=== PATIENT | female | born 1990 | race Caucasian/White ===

== ENCOUNTER 2017-12-07 19:47 | Emergency (ER) | payer OTHER ==
[~2017-12-07] VITALS: Ht 172.7 cm; Wt 56.7 kg
[2017-12-07] MEDS ORDERED: Percocet 5-3251 EACH PO (20:22)
[2017-12-07] MEDS ORDERED: CYCL10 PO (20:22)
[2017-12-07 21:46] LABS: Adenovirus Not Detected (NOT DETECT); Bordetella pertussis Not Detected (NOT DETECT); Chlamydophila pneumoniae Not Detected (NOT DETECT); Coronavirus 229E Not Detected (NOT DETECT); Coronavirus HKU1 Not Detected (NOT DETECT); Coronavirus NL63 Not Detected (NOT DETECT); Coronavirus OC43 Not Detected (NOT DETECT); Human Metapneumovirus Not Detected (NOT DETECT); Human Rhinovirus/Enterovirus Not Detected (NOT DETECT); Influenza A/2009-H1 Not Detected (NOT DETECT); Influenza A/H1 Not Detected (NOT DETECT); Influenza A/H3 Not Detected (NOT DETECT); Influenza B Not Detected (NOT DETECT); Mycoplasma pneumoniae Not Detected (NOT DETECT); Parainfluenza Virus 1 Not Detected (NOT DETECT); Parainfluenza Virus 2 Not Detected (NOT DETECT); Parainfluenza Virus 3 Not Detected (NOT DETECT); Parainfluenza Virus 4 Not Detected (NOT DETECT); Respiratory Syncytial Virus Not Detected (NOT DETECT)
[2017-12-07 23:02] LABS: Influenza A Not Detected (NOT DETECT)
== END 2017-12-07 20:36 | disposition home or self-care (01) ==
LOC: ER 19:47
PROVIDERS: Psychiatry & Neurology Psychiatry
DX: M54.5 Low back pain (principal)
CPT/HCPCS: 87486; 87581; 87633; 87798; 96372; 99283; J1885

== ENCOUNTER 2020-06-16 04:58 | Inpatient (IN) | payer OTHER ==
[~2020-06-16] VITALS: Ht 172.7 cm; Wt 68.0 kg
[~2020-06-16 04:58] MED LIST: CYCL10 PO; Percocet 5-3251 EACH PO
[2020-06-16] MEDS ORDERED: PRENATAL MULTI1 EAC5 PO (05:32)
[2020-06-16 05:40] LABS: BASOPHILS ABSOLUTE AUTO 0.04 K/mm3 (0.00-0.23); BASOPHILS PERCENT AUTO 0 % (0-2); EOSINOPHILS ABSOLUTE AUTO 0.03 K/mm3 (0.00-0.68); EOSINOPHILS PERCENT AUTO 0 % (0-6); Hematocrit 39.2 % (33.0-51.0); IMMATURE GRAN PERCENT AUTO 1 % (0-1); LYMPHOCYTES ABSOLUTE AUTO 1.25 K/mm3 (0.84-5.20); LYMPHOCYTES PERCENT AUTO 7 % (21-46); MONOCYTES ABSOLUTE AUTO 0.86 K/mm3 (0.16-1.47); MONOCYTES PERCENT AUTO 5 % (4-13); Mean Corpuscular HGB 31.7 pg (26.0-34.0); Mean Corpuscular HGB Conc 33.2 g/dL (31.5-36.5); Mean Corpuscular Volume 96 fL (80-100); NEUTROPHILS ABSOLUTE AUTO 15.49 K/mm3 (1.96-9.15); NEUTROPHILS PERCENT AUTO 87 % (41-73); Platelet Count 180 K/mm3 (150-400); RDW Coefficient Variation 13.2 % (11.7-14.2); RDW Standard Deviation 46.1 fL (35.1-46.3); White Blood Cell Count 17.77 K/mm3 (4.00-11.30)
[2020-06-16] MEDS ORDERED: IBUP800 PO (15:41)
--- NOTE | 2020-06-16 16:53 | NUR ---
RN ROUNDED TO HELP W/ . NB AT BREAST W/ MOUTH FULL OF BREAST TISSUE AND WOULD NOT SUCK, DURING ORAL ASSESSMENT AND SLIGHT PRESSURE ON ROOF OF MOUTH NB SUCKED WELL. PT DOES NOT WANT TO USE SHIELD AT THIS TIME. RN INSTRUCT/DEMO WIDENING LATCH, CORRECT POSITIONING AND NIPPLE SHAPE AFTER FEEDS. INSTRUCTED PT TO HAND EXPRESS DROPS INTO NB MOUTH IF NB IS NOT GETTING A GOOD FEED. PT'S NIPPLE VERY SENSITIVE WITH LATCHING AND HAND EXPRESSION. INSTRUCTED PT TO ATTEMPT TO LATCH NB EVERY 2-3 HOURS, IF NB DOES NOT LATCH TO HAND EXPRESS 10-20 DROPS INTO NB MOUTH. PT VERBALIZED UNDERSTANDING, DENIES ANY FURTHER QUESTIONS OR CONCERNS. WILL ROUND AGAIN IN THE MORNING.
[2020-06-17 06:23] LABS: BASOPHILS ABSOLUTE AUTO 0.06 K/mm3 (0.00-0.23); BASOPHILS PERCENT AUTO 0 % (0-2); EOSINOPHILS ABSOLUTE AUTO 0.06 K/mm3 (0.00-0.68); EOSINOPHILS PERCENT AUTO 0 % (0-6); Hematocrit 35.7 % (33.0-51.0); IMMATURE GRAN ABSOLUTE AUTO 0.08 K/mm3 (0.00-0.10); IMMATURE GRAN PERCENT AUTO 0 % (0-1); LYMPHOCYTES ABSOLUTE AUTO 1.61 K/mm3 (0.84-5.20); LYMPHOCYTES PERCENT AUTO 8 % (21-46); MONOCYTES ABSOLUTE AUTO 1.14 K/mm3 (0.16-1.47); MONOCYTES PERCENT AUTO 6 % (4-13); Mean Corpuscular HGB 32.1 pg (26.0-34.0); Mean Corpuscular HGB Conc 33.6 g/dL (31.5-36.5); Mean Corpuscular Volume 96 fL (80-100); Mean Platelet Volume 10.7 fL (9.1-12.4); NEUTROPHILS PERCENT AUTO 85 % (41-73); Platelet Count 162 K/mm3 (150-400); RDW Coefficient Variation 13.3 % (11.7-14.2); RDW Standard Deviation 46.7 fL (35.1-46.3); Red Blood Cell Count 3.74 M/mm3 (3.80-5.20); White Blood Cell Count 19.35 K/mm3 (4.00-11.30)
--- NOTE | 2020-06-17 14:22 | NUR ---
DISCHARGE DC HOME STABLE. PARENTS VERBALIZE UNDERSTANDING OF DC INSTRUCTIONS AND FOLLOW UP APPOINTMENTS. NO QUESTIONS OR CONCERNS. CARING FOR SELF AND INDEPENDANTLY.
== END 2020-06-17 14:30 | disposition home or self-care (01) | DRG 807 ==
LOC: BC 04:58 → OBS 04:58 → BC 05:22
PROVIDERS: ADMIT Registered Nurse Community Health
PROC: 10E0XZZ Delivery of Products of Conception, External Approach (ICD-10-PCS; principal; 2020-06-16)
DX: O70.0 First degree perineal laceration during delivery (principal); Z37.0 Single live birth; Z3A.40 40 weeks gestation of pregnancy
CPT/HCPCS: 36415; 76856; 85025; 86850; 86900; 86901; 88307; J2405; J2590; J7120

== ENCOUNTER → 2020-08-06 | Outpatient (CLI) | payer OTHER ==
[~2020-08-06] MED LIST changes: +IBUP800 PO; +PRENATAL MULTI1 EAC5 PO
== END ==
LOC: LAB SHORT 16:35 → LAB UCHC 16:35
DX: N76.0 Acute vaginitis (principal)
CPT/HCPCS: 87070; 87205

== ENCOUNTER 2025-10-07 07:27 | Inpatient (IN) | payer SELFPAY ==
[~2025-10-07] VITALS: Ht 172.7 cm; Wt 64.8 kg
[2025-10-07] MEDS ORDERED: Vancomycin (Pharmacy Consult) IV PRN (08:10)
[2025-10-07] MEDS ORDERED: Clindamycin 900mg in D5W 50ML 50 ML IV ONE (08:10)
[2025-10-07] MEDS ORDERED: Piperacillin/Tazobactam Sod 4.5 GM in NS 100 ML IV ONE (08:10)
[2025-10-07] MEDS ORDERED: NS 1,000 ML IV SCH ×2 (08:10→11:25)
[2025-10-07 08:35] LABS: BASOPHILS ABSOLUTE AUTO 0.04 K/mm3 (0.00-0.23); BASOPHILS PERCENT AUTO 0 % (0-2); EOSINOPHILS ABSOLUTE AUTO 0.03 K/mm3 (0.00-0.68); EOSINOPHILS PERCENT AUTO 0 % (0-6); Hematocrit 45.1 % (33.0-51.0); Hemoglobin 15.6 g/dL (11.5-16.0); IMMATURE GRAN ABSOLUTE AUTO 0.13 K/mm3 (0.00-0.10); IMMATURE GRAN PERCENT AUTO 1 % (0-1); LYMPHOCYTES ABSOLUTE AUTO 0.22 K/mm3 (0.84-5.20); LYMPHOCYTES PERCENT AUTO 1 % (21-46); MONOCYTES ABSOLUTE AUTO 0.77 K/mm3 (0.16-1.47); MONOCYTES PERCENT AUTO 5 % (4-13); Mean Corpuscular HGB Conc 34.6 g/dL (31.5-36.5); Mean Corpuscular Volume 90 fL (80-100); NEUTROPHILS ABSOLUTE AUTO 16.01 K/mm3 (1.96-9.15); NEUTROPHILS PERCENT AUTO 93 % (41-73); NRBC ABSOLUTE 0.00 K/mm3 (0.00-0.02); NRBC Auto 0.0 /100 WBC (0.0-0.2); Platelet Count 178 K/mm3 (150-400); RDW Coefficient Variation 12.2 % (11.7-14.2); RDW Standard Deviation 39.8 fL (35.1-46.3)
[2025-10-07] MEDS ORDERED: Ketorolac Tromethamine 30mg Vial IV ONE (08:45)
[2025-10-07 09:03] LABS: C-REACTIVE PROTEIN, EXT RANGE 1.17 mg/dL (0.000-0.300); Magnesium, Blood 2.1 mg/dL (1.6-2.4)
[2025-10-07 09:06] LABS: Alanine Aminotransfer (ALT/SGP 21.0 U/L (12-78); Albumin, Blood 5.1 g/dL (3.4-5.0); Albumin/Globulin Ratio 1.6 (0.8-1.8); Anion Gap 12.0 mmol/L (3-11); Aspartate Aminotrans (AST/SGOT 14.0 U/L (12-37); Bilirubin, Total 1.5 mg/dL (0.1-1.0); Blood Urea Nitrogen 13.0 mg/dL (8-24); CO2, Blood 20.0 mmol/L (21-32); Calcium, Blood 9.5 mg/dL (8.5-10.1); Chloride, Blood 103.0 mmol/L (98-108); Creatinine, Blood 0.82 mg/dL (0.40-1.00); Globulin, Blood 3.1 g/dL (2.2-4.0); Glucose, Blood 136.0 mg/dL (70-99); Potassium, Blood 3.4 mmol/L (3.5-5.5); Sodium, Blood 132.0 mmol/L (136-145); Total Protein, Blood 8.2 g/dL (6.4-8.2)
[2025-10-07] MEDS ORDERED: FLU VACC TS2025-26(6MOS UP)/PF 45 MCG/0.5 ML SYRINGE IM SCH (12:25)
[2025-10-07] MEDS ORDERED: Ondansetron HCl 2 MG / ML 2ML Vial IV PRN (12:25)
[2025-10-07] MEDS ORDERED: Vancomycin (Pharmacy Consult) IV SCH (12:25)
[2025-10-07] MEDS ORDERED: Ketorolac Tromethamine 15mg Vial IV PRN (12:30)
[2025-10-07 13:41] VITALS: BP 98/63
[2025-10-07] MEDS ORDERED: NS 250 ML IV PRN (13:45)
[2025-10-07] MEDS ORDERED: Piperacillin/Tazobactam Sod 4.5 GM in NS 100 ML IV SCH (14:00)
[2025-10-07 15:30] VITALS: BP 103/65
--- NOTE | 2025-10-07 15:37 | NUR ---
NOTE PT HAS VIEWS SCORE OF 3 DUE TO HR, TEMP, AND BP. VITALS RETAKEN, TEMP IS 98.6 ORAL. PT BP IMPROVING, HR STILL TACHY, PT ON TELE, PT RR INCREASED FROM 14 TO 16. PT REPORTS "IMPROVING." PT JUST COMPLETED IV ANTIBIOTIC AND ELECTRONIC ENGINEERING TECHNICIAN NOTIFIED. PT IN BED, CALLS APPROPRAITE. LOCKED, CALL LIGHT IN REACH.
[2025-10-07 17:25] VITALS: BP 87/56
--- NOTE | 2025-10-07 17:29 | NUR ---
NOTE PT VEWS SCORE WAS 4. PT BP IS 87/56. PT HR 116. PT RR IS 16. SPO2 100%. PT ORAL TEMP IS 99.2. THIS RN NOTIFIED PROCESSING TECH, THIS RN ATTEMPTED TO CALL DR. SNELL, AWAITING CALL BACK. PT HAS LR RUNNING AT 100ML/HR.
[2025-10-07 17:36] VITALS: BP 95/58
[2025-10-07 19:24] VITALS: BP 93/59
--- NOTE | 2025-10-07 19:56 | NUR ---
SHIFT SUMMARY THIS RN GOT AHOLD OF DR. SNELL, (PER PREVIOUS NOTE) THIS RN REPORTED PT VITALS. DR. SNELL GAVE ORDER FOR MIDODRINE 5MG TID, W PARAMETERS. THIS RN ADMINISTERED AT 1754 WHEN BP WAS 95/36. PT BP RECHEKED AT 1924 AND BP WAS 93/59. PT GETTING IV VANCO AND ZOCIN, PT TEMP WAS 100,1 LAST. PT DENIED NEED FOR TYLENOL AND ICE PACKS. REPORTED TO NIGHT RN TO RESUME CONT FLUIDS LR AT 200ML/HR PER DR. SNELL REQUEST. PT A&OX4. PT ADMITTED TO FLOOR AT 1350. PT ORIENTED TO CALL LIGHT/FALL PRECAUTIONS/UNIT. PT ADMITTED DUE TO CELLULITIS OF L HAND. PT REPORTS "INCREASE SWELLING." PT REPORTS "HAND GEAR MACHINE OPERATOR GENERAL TEMP, CONT TO FEEL CHILLS THROUGHOUT BODY INTERMITTENT." PT REPORTS "STARTED HAVING LOOSE STOOLS WHEN GOT ON FLOOR," THIS RN NOTED PROBIOTIC IS ORDERED BID. PHOTOS TAKEN, CYBER INTEL PLANNER NOTIFIED, AWAITING PHOTOS FOR CHART. SECOND RN SKIN CHECK COMPLETE W ESMER RN. PT REPORTS "NO SOB NO CHEST PAIN, NO GEN PAIN. PT REPORTS SOME TINGLING IN HAND BUT NOT SIGNIFICANT." PT ON TELE, TELE REPORTED PT TACH'D UP TO 150, NOT SUSTAINING, PT REPORTED "FELT FLUTTER AND HAD TO COUGH," PT REMAINS ON TELE, THIS RN COMPLETED ADMISSION ASSESSMENT, PT REPORTS NO MEDS TAKING CURRENTLY AT HOME. PT IN BED, BED IN LOWEST POSITION, LOCKED, CALL LIGHT IN REACH.
[2025-10-07] MEDS ORDERED: Lactobacil 2-S.Thermo-Bifido 1 1 Cap PO SCH (21:00)
[2025-10-07 23:36] VITALS: BP 86/57
[2025-10-08] VITALS (11 sets, daily range): BP systolic 84–100; BP diastolic 43–65
--- NOTE | 2025-10-08 03:22 | NUR ---
HOSPITALIST CONTACT VITALS AT 2336 SHOWED BLOOD PRESSURE OF 86/57. PT HR TACHY AT 101 AND INCREASED TO THE 120'S WITH AMBULATION TO THE BATHROOM. CALL TO HOSPITALIST AND SPOKE TO VICK. NEW ORDER FOR 1X DOSE OF MIDODRINE 5MG NOW AND 500ML LR BOLUS. MED AND BOLUS GIVEN. PT DENIES DIZZINESS, CONFUSION OR OTHER SYMPTOMS. VITALS RECHECKED, MAP IMPROVED TO 75. HR IN THE 90'S.
--- NOTE | 2025-10-08 04:06 | NUR ---
PT BP 92/48 MANUAL ON RA AN DHR 102. PT REDNESS HAS EXPANDED PAST MARKER AND HAVING INCREASED PAIN. HOSPITALIST NOTIFIED AND WILL CONTINUE WITH CURRENT PLAN OF CARE WITH LR @ 200 ML/HR AND TO CLOSELY MONITOR BP AND FOR S/S OF SEPSIS.
--- NOTE | 2025-10-08 04:42 | NUR ---
I TOOK REPORT AND ASSUMED CARE OF PT @ 0409.
--- NOTE | 2025-10-08 05:17 | NUR ---
RECHECK ON PT BP MANUALLY 86/52 ON RA, PT ASYMPTOMATIC, TELE SINUS TACH 102 BPM. TEMP ORAL 98.7, RR 16. HOSPITALIST NOTIFIED AND ORDERS GIVEN TO CONTINUE IVF LR @ 200 ML/HR. HOSPITALIST CAME TO ASSESS PT LA AND IF THEY WERE FEELING SYMPTOMATIC FROM HYPOTENSION. PT DENIES DIZZYNESS, SOB, BUT ENDORSED INCREASED SWELLING AND PAIN WITH MOVEMENT IN LA. HOSPITALIST ORDERED ADDITIONAL 1L LR @ 75 ML/HR AND TO RECHECK BP EVERY 30-45 MINUTES AND TO NOTIFY IF PT BECOMES SYMPTOMATIC. PT DECLINED IV SOLUMEDROL FOR INFLAMMATION AT THIS TIME, BUT WILL REVISIT IF SYMPTOMS BECOME WORSE.
[2025-10-08 05:31] LABS: BASOPHILS ABSOLUTE AUTO 0.02 K/mm3 (0.00-0.23); BASOPHILS PERCENT AUTO 0 % (0-2); EOSINOPHILS ABSOLUTE AUTO 0.25 K/mm3 (0.00-0.68); EOSINOPHILS PERCENT AUTO 2 % (0-6); Hematocrit 35.9 % (33.0-51.0); Hemoglobin 12.1 g/dL (11.5-16.0); IMMATURE GRAN ABSOLUTE AUTO 0.08 K/mm3 (0.00-0.10); IMMATURE GRAN PERCENT AUTO 1 % (0-1); LYMPHOCYTES ABSOLUTE AUTO 0.15 K/mm3 (0.84-5.20); LYMPHOCYTES PERCENT AUTO 1 % (21-46); MONOCYTES ABSOLUTE AUTO 0.22 K/mm3 (0.16-1.47); MONOCYTES PERCENT AUTO 2 % (4-13); Mean Corpuscular HGB Conc 33.7 g/dL (31.5-36.5); Mean Corpuscular Volume 92 fL (80-100); NEUTROPHILS ABSOLUTE AUTO 11.54 K/mm3 (1.96-9.15); NEUTROPHILS PERCENT AUTO 94 % (41-73); NRBC ABSOLUTE 0.00 K/mm3 (0.00-0.02); NRBC Auto 0.0 /100 WBC (0.0-0.2); Platelet Count 127 K/mm3 (150-400); RDW Coefficient Variation 12.7 % (11.7-14.2); RDW Standard Deviation 42.6 fL (35.1-46.3)
--- NOTE | 2025-10-08 05:48 | NUR ---
SHIFT SUMMARY NOC PT A/O X 4. PLEASANT AND COOPERATIVE WITH CARE. PT HAS BEEN HYPOTENSIVE, BUT ASYMPTOMATIC FOR ENTIRETY OF SHIFT WITH BP 98'S-80'S SYSTOLIC TO HIGH 40'S-50'S DIASTOLIC. PT WAS GIVEN 500 ML BOLUS OF LR AND FIRST DOSE OF 5 MG MIDODRINE AND NOW HAS TID ORDER IN PLACE. PT LA HAS SIGNIFICANT SWELLING AND TIGHTNESS, HOSPITALIST CAME TO ASSESS PT LA AND CONCERNS WITH BP. PT DECLINED SOLU MEDROL FOR INFLAMMATION CURRENTLY. PT HAS LR INFUSING @ 200 ML/HR THEN ADDITIONAL 1L LR @ 75 ML/HR TO MAINTAIN BP AND MAP >60 WITH ORDERS TO NOTIFY MD IF MAP <60. PT ON TELE SINUS TACH IN LOW 100'S. PT RECEIVED IV ABX PER EMAR. PT CURRENTLY RESTING WITH BED IN LOWEST POSITION, AND CALL LIGHT WITHIN REACH.
[2025-10-08 05:50] LABS: C-REACTIVE PROTEIN, EXT RANGE 16.0 mg/dL (0.000-0.300)
[2025-10-08 05:57] LABS: Anion Gap 10.0 mmol/L (3-11); Blood Urea Nitrogen 9.0 mg/dL (8-24); CO2, Blood 22.0 mmol/L (21-32); Calcium, Blood 7.5 mg/dL (8.5-10.1); Chloride, Blood 110.0 mmol/L (98-108); Creatinine, Blood 0.89 mg/dL (0.40-1.00); Glucose, Blood 113.0 mg/dL (70-99); Potassium, Blood 3.8 mmol/L (3.5-5.5); Sodium, Blood 138.0 mmol/L (136-145)
--- NOTE | 2025-10-08 06:12 | NUR ---
HOSPITALIST ANSWERING SERVICE NOTIFIED THAT PT CRP INCREASED TO 16.0 FROM 1.170.
[2025-10-08] MEDS ORDERED: Enoxaparin 40 MG/0.4 ML SYR SC SCH (09:00)
[2025-10-08 09:30] LABS: Vancomycin, Trough 10.2 ug/mL (5.0-10.0)
--- NOTE | 2025-10-08 13:08 | NUR ---
PHYSICIAN CONTACT CALLED DR. JONAS OFFICE TO UPDATE HIM ON THE AVAILABLE CT RESULTS. A MESSAGE WILL BE PASSED ALONG TO THE PROVIDER AND THE SALES MANAGER SAID HE WOULD CONTACT THIS NURSE WHEN ABLE.
[2025-10-08] MEDS ORDERED: Clindamycin 900mg in D5W 50ML 50 ML IV SCH (16:00)
--- NOTE | 2025-10-08 16:43 | NUR ---
SHIFT SUMMARY PT AOX4, INDEPENDENTIN THE ROOM. L ARM ELEVATED ON PILLOWS. NPO AT MIDNIGHT TONIGHT PER DR. POOLE. BLOOD PRESSURES FLUCTUATING, PROVIDER AWARE. MEDICATED PER THE EMAR. REPOSITIONS SELF IN BED. NO EVENTS PER TELE. BOWEL CARE HELD THIS AM DUE TO DIARRHEA PER THE PT. AT THE BS. POSSIBLE PROCEDURE TOMORROW, ORTHO WILL RE-ASSESS IN THE AM. CALL LIGHT WITHIN REACH, BED LOCKED AND IN THE LOWEST POSITION. WILL REPORT TO ONCOMING NURSE.
--- NOTE | 2025-10-08 20:58 | NUR ---
PT BP 93/46, HR 109, TEMP 101.6F ORALLY, VIEW SCORE OF 5. HOSPITALIST NOTIFIED THAT PT HAS BEEN RUNNING SOFT BP AND HAS BEEN TACHYCARDIC, AND DECLINED TYLENOL TO LET FEVER RESOLVE ON OWN. NO FURTHER INTERVENTIONS AT THIS TIME.
--- NOTE | 2025-10-08 22:43 | NUR ---
PT TEMP SPOT CHECKED AND WAS 101.4F ORALLY. PT STILL DECLINING TYLENOL AT THIS TIME.
[2025-10-09] VITALS (7 sets, daily range): BP systolic 93–116; BP diastolic 50–73
[2025-10-09 04:55] LABS: BASOPHILS ABSOLUTE AUTO 0.01 K/mm3 (0.00-0.23); BASOPHILS PERCENT AUTO 0 % (0-2); EOSINOPHILS ABSOLUTE AUTO 0.37 K/mm3 (0.00-0.68); EOSINOPHILS PERCENT AUTO 5 % (0-6); Hematocrit 32.4 % (33.0-51.0); Hemoglobin 10.9 g/dL (11.5-16.0); IMMATURE GRAN ABSOLUTE AUTO 0.07 K/mm3 (0.00-0.10); IMMATURE GRAN PERCENT AUTO 1 % (0-1); LYMPHOCYTES ABSOLUTE AUTO 0.31 K/mm3 (0.84-5.20); LYMPHOCYTES PERCENT AUTO 4 % (21-46); MONOCYTES ABSOLUTE AUTO 0.19 K/mm3 (0.16-1.47); MONOCYTES PERCENT AUTO 3 % (4-13); Mean Corpuscular HGB Conc 33.6 g/dL (31.5-36.5); Mean Corpuscular Volume 92 fL (80-100); NEUTROPHILS ABSOLUTE AUTO 6.71 K/mm3 (1.96-9.15); NEUTROPHILS PERCENT AUTO 88 % (41-73); NRBC ABSOLUTE 0.00 K/mm3 (0.00-0.02); NRBC Auto 0.0 /100 WBC (0.0-0.2); Platelet Count 114 K/mm3 (150-400); RDW Coefficient Variation 12.4 % (11.7-14.2); RDW Standard Deviation 41.5 fL (35.1-46.3)
[2025-10-09 05:17] LABS: Anion Gap 8.0 mmol/L (3-11); Blood Urea Nitrogen 6.0 mg/dL (8-24); C-REACTIVE PROTEIN, EXT RANGE 14.2 mg/dL (0.000-0.300); CO2, Blood 23.0 mmol/L (21-32); Calcium, Blood 7.2 mg/dL (8.5-10.1); Chloride, Blood 111.0 mmol/L (98-108); Creatinine, Blood 0.82 mg/dL (0.40-1.00); Glucose, Blood 106.0 mg/dL (70-99); Potassium, Blood 3.5 mmol/L (3.5-5.5); Sodium, Blood 138.0 mmol/L (136-145)
--- NOTE | 2025-10-09 05:37 | NUR ---
SHIFT SUMMARY NOC PT A/O X 4. PLEASANT AND COOPERATIVE WITH CARE. BP IMPROVED LOW 100'S OVER 50'S STILL TACHY IN LOW 100'S. PT HAD ORAL TEMP OF 101.6F AND DECLINED TYLENOL, MADE AWARE AND FEVER RESOLVED WITH LAST TWO TEMPS BELOW 100.0. CRP TRENDING DOWN TO 14.2 THIS AM AND WBC WNL. PT LUE STILL SWOLLEN AND PAINFUL WITH EXCESSIVE MOVEMENT. PT HAS BEEN ELEVATING LUE ON PILLOWS TO HELP WITH SWELLING. PT HAS BEEN NPO SINCE MIDNIGHT FOR REASSESSMENT OF LUE BY DR POOLE TODAY FOR POSSIBLE SURGICAL INTERVENTION. PT ON TELE SINUS TACH IN LOW 100'S. PT CURRENTLY RESTING WITH SPOUSE IN ROOM, BED IN LOWEST POSITION, AND CALL LIGHT WITHIN REACH.
[2025-10-09] MEDS ORDERED: Enoxaparin 40 MG/0.4 ML SYR SC SCH (13:00)
--- NOTE | 2025-10-09 18:49 | NUR ---
NO ACUTE CHANGES, RIGHT HAND AND FOREARM IMPROVED, REFUSED NEED FOR PAIN MEDICATIONS, PLEASANT TO CARE, CALL LIGHT WITH IN REACH, WILL RELAY TO PM RN
[2025-10-10 04:10] VITALS: BP 96/66
--- NOTE | 2025-10-10 04:20 | NUR ---
SHIFT SUMMARY NOC PT A/O X 4. PLEASANT AND COOPERATIVE WITH CARE. BP STABLE. PT HAS REMAINED AFEBRILE. IV ABX PER EMAR. LUE SWELLING HAS IMPROVED IN HAND, BUT SEEMS MORE SWOLLEN TOWARDS ELBOW. PT ON TELE SINUS RHYHTM IN 80'S-90'S. PT STATES THAT THEY HOPE TO BE ABLE TO DISCHARGE HOME TODAY. PT CURRENTLY RESTING WITH BED IN LOWEST POSITION, AND CALL LIGHT WITHIN REACH.
[2025-10-10 05:54] LABS: BASOPHILS ABSOLUTE AUTO 0.02 K/mm3 (0.00-0.23); BASOPHILS PERCENT AUTO 0 % (0-2); EOSINOPHILS ABSOLUTE AUTO 0.41 K/mm3 (0.00-0.68); EOSINOPHILS PERCENT AUTO 7 % (0-6); Hematocrit 32.8 % (33.0-51.0); Hemoglobin 11.2 g/dL (11.5-16.0); IMMATURE GRAN ABSOLUTE AUTO 0.01 K/mm3 (0.00-0.10); IMMATURE GRAN PERCENT AUTO 0 % (0-1); LYMPHOCYTES ABSOLUTE AUTO 0.39 K/mm3 (0.84-5.20); LYMPHOCYTES PERCENT AUTO 7 % (21-46); MONOCYTES ABSOLUTE AUTO 0.32 K/mm3 (0.16-1.47); MONOCYTES PERCENT AUTO 6 % (4-13); Mean Corpuscular HGB Conc 34.1 g/dL (31.5-36.5); Mean Corpuscular Volume 90 fL (80-100); NEUTROPHILS ABSOLUTE AUTO 4.44 K/mm3 (1.96-9.15); NEUTROPHILS PERCENT AUTO 79 % (41-73); NRBC ABSOLUTE 0.00 K/mm3 (0.00-0.02); NRBC Auto 0.0 /100 WBC (0.0-0.2); Platelet Count 130 K/mm3 (150-400); RDW Coefficient Variation 12.1 % (11.7-14.2); RDW Standard Deviation 40.5 fL (35.1-46.3)
[2025-10-10 06:23] LABS: Anion Gap 10.0 mmol/L (3-11); Blood Urea Nitrogen 7.0 mg/dL (8-24); CO2, Blood 24.0 mmol/L (21-32); Calcium, Blood 8.3 mg/dL (8.5-10.1); Chloride, Blood 109.0 mmol/L (98-108); Creatinine, Blood 0.68 mg/dL (0.40-1.00); Glucose, Blood 103.0 mg/dL (70-99); Potassium, Blood 3.5 mmol/L (3.5-5.5); Sodium, Blood 139.0 mmol/L (136-145)
[2025-10-10 07:07] VITALS: BP 103/69
[2025-10-10 11:19] VITALS: BP 98/72
[2025-10-10 13:13] VITALS: BP 101/71
[2025-10-10 15:44] VITALS: BP 113/73
--- NOTE | 2025-10-10 18:09 | NUR ---
NO ACUTE CHANGES, POSSIBLE DISCHARGE HOME TOMORROW, LEFT FOREARM WRAPPED FOR ELBOW SWELLING, VSS, CLEARLY MAKES NEEDS KNOWN, AMBULATED ON THE UNTI FLOOR, CALL LIGHT WITH IN REACH, WILL RELAY TO PM RN
[2025-10-10 19:11] VITALS: BP 97/64
[2025-10-11 04:43] VITALS: BP 98/66
--- NOTE | 2025-10-11 05:18 | NUR ---
SHIFT SUMMARY NO ACUTE EVENTS OVERNIGHT. GRADUAL IMPROVEMENT IN REDNESS/SWELLING OF L HAND/FOREARM CELLULITIS. IV CLINDAMYCIN + ZOSYN VIA RFA IV. A&OX4. INDEPENDENT. AFEBRILE X2 DAYS. PT EAGER TO RETURN HOME TO AND 2 YOUNG CHILDREN. LIKELY HOME TODAY OR TOMORROW PER ORTHO CONSULT.
[2025-10-11 05:46] LABS: BASOPHILS ABSOLUTE AUTO 0.02 K/mm3 (0.00-0.23); BASOPHILS PERCENT AUTO 0 % (0-2); EOSINOPHILS ABSOLUTE AUTO 0.51 K/mm3 (0.00-0.68); EOSINOPHILS PERCENT AUTO 11 % (0-6); Hematocrit 34.6 % (33.0-51.0); Hemoglobin 11.7 g/dL (11.5-16.0); IMMATURE GRAN ABSOLUTE AUTO 0.03 K/mm3 (0.00-0.10); IMMATURE GRAN PERCENT AUTO 1 % (0-1); LYMPHOCYTES ABSOLUTE AUTO 0.84 K/mm3 (0.84-5.20); LYMPHOCYTES PERCENT AUTO 18 % (21-46); MONOCYTES ABSOLUTE AUTO 0.41 K/mm3 (0.16-1.47); MONOCYTES PERCENT AUTO 9 % (4-13); Mean Corpuscular HGB Conc 33.8 g/dL (31.5-36.5); Mean Corpuscular Volume 90 fL (80-100); NEUTROPHILS ABSOLUTE AUTO 2.98 K/mm3 (1.96-9.15); NEUTROPHILS PERCENT AUTO 62 % (41-73); NRBC ABSOLUTE 0.00 K/mm3 (0.00-0.02); NRBC Auto 0.0 /100 WBC (0.0-0.2); Platelet Count 171 K/mm3 (150-400); RDW Coefficient Variation 12.1 % (11.7-14.2); RDW Standard Deviation 39.9 fL (35.1-46.3)
[2025-10-11 06:08] LABS: Anion Gap 7.0 mmol/L (3-11); Blood Urea Nitrogen 7.0 mg/dL (8-24); C-REACTIVE PROTEIN, EXT RANGE 10.2 mg/dL (0.000-0.300); CO2, Blood 27.0 mmol/L (21-32); Calcium, Blood 8.4 mg/dL (8.5-10.1); Chloride, Blood 108.0 mmol/L (98-108); Creatinine, Blood 0.74 mg/dL (0.40-1.00); Glucose, Blood 95.0 mg/dL (70-99); Potassium, Blood 3.4 mmol/L (3.5-5.5); Sodium, Blood 139.0 mmol/L (136-145)
[2025-10-11 07:20] VITALS: BP 105/64
[2025-10-11 12:00] VITALS: BP 116/87
[2025-10-11] MEDS ORDERED: IBUP400 PO (13:08)
[2025-10-11] MEDS ORDERED: ACET325 (13:08)
[2025-10-11] MEDS ORDERED: Cleocin HCl150 MG PO (13:10)
[2025-10-11] MEDS ORDERED: PROBIOTIC (13:12)
== END 2025-10-11 13:38 | disposition home or self-care (01) | DRG 872 ==
LOC: ER 07:27 → MEDS 12:19
PROVIDERS: Student in an Organized Health Care Education/Training Program; ADMIT Internal Medicine
DX: A41.9 Sepsis, unspecified organism (principal); E87.1 Hypo-osmolality and hyponatremia; L03.114 Cellulitis of left upper limb; E87.20 Acidosis, unspecified; R65.20 Severe sepsis without septic shock; I45.10 Unspecified right bundle-branch block; R00.0 Tachycardia, unspecified; E87.6 Hypokalemia; I95.9 Hypotension, unspecified; Z98.890 Other specified postprocedural states
CPT/HCPCS: 36415; 73201; 76882; 80048; 80053; 80202; 83605; 83735; 85025; 85651; 86140; 87040; 93005; 93010; 96365-59; 96367; 96375; 99284-25; A9270; J1885; J2543; J3373; J7030; J7050; J7120; Q9967